=== PATIENT | male | born 1980 | race Caucasian/White ===

== ENCOUNTER 2018-11-26 19:24 | Emergency (ER) | payer SELFPAY ==
--- NOTE | 2018-11-26 19:56 | EDM.PDOC ---
ED HPI GENERAL MEDICAL PROBLEM - General Chief Complaint: General Stated Complaint: PT HAS FLU Time Seen by Provider: 11/26/18 19:46 - History of Present Illness INITIAL COMMENTS - FREE TEXT/NARRATIVE: HISTORY AND PHYSICAL: History of present illness: The patient is a 38-year-old male with no significant past medical history who presents or clearance to go back to work after having upper respiratory symptoms /viral symptoms. He says for the last week he's had a runny nose congestion cough body aches subjective fevers and chills and some diarrhea. He says he's been using [id number] meds and trying to hydrate. He does state that he is feeling much improved and wanted to go back to work but his employer said that he needed to come and get a note to clear him. He is currently hydrating and eating has no abdominal complaints and says overall is feeling much improved. The patient did not get his influenza shot this year Review of systems: As per history of present illness and below otherwise all systems reviewed and negative. Past medical history: As per history of present illness and as reviewed below otherwise noncontributory. Surgical history: As per history of present illness and as reviewed below otherwise noncontributory. Social history: No reported history of drug or alcohol abuse. Family history: As per history of present illness and as reviewed below otherwise noncontributory. Physical exam: General: Well-developed well-nourished man who is nontoxic and speaking was slight nasal quality to voice but no breathlessness HEENT: Atraumatic, normocephalic, pupils reactive, negative for conjunctival pallor or scleral icterus, mucous membranes moist, throat clear, neck supple, nontender, trachea midline. No cervical adenopathy or nuchal rigidity Lungs: Clear to auscultation, breath sounds equal bilaterally, chest nontender. No wheezing stridor or work of breathing Heart: S1S2, regular rhythm and slightly tachycardic rate on my evaluation but no overt murmurs. Abdomen: Soft, nondistended, nontender. NABS Pelvis: Deferred Genitourinary: Deferred. Rectal: Deferred. Extremities: Atraumatic, full range of motion without defects or deficits Neurovascular unremarkable. Neuro: Awake, alert, oriented. Cranial nerves II through XII unremarkable. Cerebellum unremarkable. Motor and sensory unremarkable throughout. Exam nonfocal. Diagnostics: [] Therapeutics: [] I offered the patient testing and he said that he is feeling better at this point and he would only do it if it was necessary for him to be cleared to go back to work. I did give the patient a digital thermometer so that he can check his temperatures and I advised him that if he has a fever of 100.5 or higher that he should not go to work until he is fever free for 24 hours. We talked about [id number] medications to utilize and push hydration and I did write him a work note to return as long as he does not have a fever Impression: Viral illness improving Definitive disposition and diagnosis as appropriate pending reevaluation and review of above. - Related Data Allergies Allergy/AdvReac Type Severity Reaction Status Date / Time No Known Allergies Allergy Verified 11/26/18 19:43 Home Meds: Home Meds . [No Known Home Meds] 08/01/18 [History] Past Medical History - Past Health History Medical/Surgical History: Denies Medical/Surgical History HEENT History: Reports: None Cardiovascular History: Reports: None Respiratory History: Reports: None Gastrointestinal History: Reports: None Genitourinary History: Reports: None Musculoskeletal History: Reports: None Neurological History: Reports: None Psychiatric History: Reports: None Endocrine/Metabolic History: Reports: None Hematologic History: Reports: None Immunologic History: Reports: None Oncologic (Cancer) History: Reports: None Dermatologic History: Reports: None - Infectious Disease History Infectious Disease History: Reports: Chicken Pox - Past Surgical History Head Surgeries/Procedures: Reports: None Social & Family History - Family History Family Medical History: Noncontributory - Tobacco Use Smoking Status *Q: Current Every Day Smoker Years of Tobacco use: 10 Packs/Tins Daily: 0.5 - Caffeine Use Caffeine Use: Reports: None - Recreational Drug Use Recreational Drug Use: No ED ROS GENERAL - Review of Systems Review Of Systems: ROS reveals no pertinent complaints other than HPI. ED EXAM, GENERAL - Physical Exam Exam: See Below (See dictation) Course - Vital Signs Last Recorded V/S: Last Vital Signs Temp 35.6 C 11/26/18 19:39 Pulse 111 H 11/26/18 19:39 Resp 16 11/26/18 19:39 BP 178/97 H 11/26/18 19:39 Pulse Ox 94 L 02/10/19 19:39 Departure - Departure Time of Disposition: 19:56 Disposition: Home, Self-Care 01 Condition: Good Clinical Impression: Viral illness - Discharge Information Referrals: PCP,None [Primary Care Provider] - Additional Instructions: The following information is given to patients seen in the emergency department who are being discharged to home. This information is to outline your options for follow-up care. We provide all patients seen in our emergency department with a follow-up referral. The need for follow-up, as well as the timing and circumstances, are variable depending upon the specifics of your emergency department visit. If you don't have a primary care physician on staff, we will provide you with a referral. We always advise you to contact your personal physician following an emergency department visit to inform them of the circumstance of the visit and for follow-up with them and/or the need for any referrals to a consulting specialist. The emergency department will also refer you to a specialist when appropriate. This referral assures that you have the opportunity for followup care with a specialist. All of these measure are taken in an effort to provide you with optimal care, which includes your followup. Under all circumstances we always encourage you to contact your private physician who remains a resource for coordinating your care. When calling for followup care, please make the office aware that this follow-up is from your recent emergency room visit. If for any reason you are refused follow-up, please contact the [facility] emergency department at and ask to speak to the emergency department charge nurse. [facility] Primary care- Internal Medicine and Family [address] [address] Continue to push hydration including electrolyte solutions and use over-the- counter meds for fevers such as Tylenol and ibuprofen. Use a thermometer you have been given here in the ED to check her temperatures and do not return to work until your fever free for 24 hours as we discussed. A fevers defined as a temperature greater than 100.4. Please call and schedule follow-up appointment in our clinic to establish care as you're new to the area and return to ER as needed and as discussed.
== END 2018-11-26 20:05 | disposition home or self-care (01) ==
LOC: MW.ED 19:24
DX: B34.9 Viral infection, unspecified (principal); F17.210 Nicotine dependence, cigarettes, uncomplicated
CPT/HCPCS: 99282; 99283

== ENCOUNTER 2019-02-28 06:55 | Emergency (ER) | payer SELFPAY ==
--- NOTE | 2019-02-28 07:00 | EDM.PDOC ---
ED HPI GENERAL MEDICAL PROBLEM - General Stated Complaint: PT WOULD LIKE TO BE SEEN, SPOKE TO NURSE Time Seen by Provider: 02/28/19 06:59 Source of Information: Reports: Patient History Limitations: Reports: No Limitations - History of Present Illness INITIAL COMMENTS - FREE TEXT/NARRATIVE: History of present illness: []Patient complains of a "shaky stomach" for 2 days. He has been nauseated with vomiting and diarrhea. Patient's had proximal 7 episodes of "gagging" per day and greater than 10 episodes of nonbloody diarrhea a day. Review of systems: As per history of present illness and below otherwise all systems reviewed and negative. Past medical history: As per history of present illness and as reviewed below otherwise noncontributory. Surgical history: As per history of present illness and as reviewed below otherwise noncontributory. Social history: No reported history of drug or alcohol abuse. Family history: As per history of present illness and as reviewed below otherwise noncontributory. Physical exam: General: Well developed, well nourished in NAD, on arrival was initially diaphoretic HEENT: Atraumatic, normocephalic, pupils reactive, negative for conjunctival pallor or scleral icterus, mucous membranes moist, throat clear, neck supple, nontender, trachea midline. Lungs: Clear to auscultation, breath sounds equal bilaterally, chest nontender. Heart: S1S2, regular, negative for clicks, rubs, or JVD. Abdomen: NABS, Soft, nondistended, nontender. Negative for masses or hepatosplenomegaly. Negative for costovertebral tenderness. Pelvis: Stable nontender. Genitourinary: Deferred. Rectal: Deferred. Extremities: Atraumatic, negative for cords or calf pain. Neurovascular unremarkable. Neuro: Awake, alert, oriented. Cranial nerves II through XII unremarkable. Cerebellum unremarkable. Motor and sensory unremarkable throughout. Exam nonfocal. Skin:warm and dry Diagnostics: CBC, chemistry, H. pylori, UA, chest x-ray Therapeutics: Zofran, IV hydration ED Course: Stable Impression: Vomiting diarrhea Prescriptions: Zofran Plan: Take meds as directed, follow up with your primary care physician, return to ER if symptoms worsen or change. Definitive disposition and diagnosis as appropriate pending reevaluation and review of above. Generalized Pain Score (Numeric/FACES): 5 - Related Data Allergies Allergy/AdvReac Type Severity Reaction Status Date / Time No Known Allergies Allergy Verified 02/28/19 07:07 Home Meds: Home Meds Ondansetron HCl [Zofran] 4 mg PO Q4HR #12 tablet 02/28/19 [Rx] Past Medical History - Past Health History Medical/Surgical History: Denies Medical/Surgical History HEENT History: Reports: None Cardiovascular History: Reports: None Respiratory History: Reports: None Gastrointestinal History: Reports: None Genitourinary History: Reports: None Musculoskeletal History: Reports: None Neurological History: Reports: None Psychiatric History: Reports: None Endocrine/Metabolic History: Reports: None Hematologic History: Reports: None Immunologic History: Reports: None Oncologic (Cancer) History: Reports: None Dermatologic History: Reports: None - Infectious Disease History Infectious Disease History: Reports: Chicken Pox - Past Surgical History Head Surgeries/Procedures: Reports: None Social & Family History - Family History Family Medical History: Noncontributory - Caffeine Use Caffeine Use: Reports: None ED ROS GENERAL - Review of Systems Review Of Systems: ROS reveals no pertinent complaints other than HPI. (vbvb) ED EXAM, GENERAL - Physical Exam Exam: See Below (See history of present illness) Course - Vital Signs Last Recorded V/S: Last Vital Signs Temp 98.1 F 02/28/19 07:07 Pulse 88 02/28/19 08:34 Resp 13 02/28/19 08:34 BP 146/90 H 02/28/19 08:34 Pulse Ox 95 02/28/19 08:34 - Orders/Labs/Meds Orders: Active Orders 24 hr Category Date Time Status EKG Documentation Completion [RC] STAT Care 02/28/19 07:13 Active Sodium Chloride 0.9% [Saline Flush] Med 02/28/19 07:06 Active 10 ml FLUSH ASDIRECTED PRN Sodium Chloride 0.9% [Saline Flush] Med 02/28/19 07:06 Active 2.5 ml FLUSH ASDIRECTED PRN Saline Lock Insert [OM.PC] Stat Oth 02/28/19 07:04 Ordered Medication Orders Sodium Chloride (Saline Flush) 10 ml FLUSH ASDIRECTED PRN PRN Reason: Keep Vein Open Last Admin: 02/28/19 07:27 Dose: 10 ml Sodium Chloride (Saline Flush) 2.5 ml FLUSH ASDIRECTED PRN PRN Reason: Keep Vein Open Last Admin: 02/28/19 07:27 Dose: 2.5 ml Labs: Laboratory Tests 02/28/19 02/28/19 02/28/19 Range/Units 07:25 07:25 07:25 WBC 6.50 (4.0-11.0) K/uL RBC 5.74 (4.50-5.90) M/uL Hgb 18.4 H (13.0-17.0) g/dL Hct 51.4 H (38.0-50.0) % MCV 89.5 (80.0-98.0) fL MCH 32.1 H (27.0-32.0) pg MCHC 35.8 (31.0-37.0) g/dL RDW Std Deviation 43.3 (28.0-62.0) fl RDW Coeff of Carole 13 (11.0-15.0) % Plt Count 161 (150-400) K/uL MPV 9.90 (7.40-12.00) fL Neut % (Auto) 64.8 (48.0-80.0) % Lymph % (Auto) 18.8 (16.0-40.0) % [place] % (Auto) 14.5 (0.0-15.0) % Eos % (Auto) 1.7 (0.0-7.0) % Baso % (Auto) 0.2 (0.0-1.5) % Neut # (Auto) 4.2 (1.4-5.7) K/uL Lymph # (Auto) 1.2 (0.6-2.4) K/uL [place] # (Auto) 0.9 H (0.0-0.8) K/uL Eos # (Auto) 0.1 (0.0-0.7) K/uL Baso # (Auto) 0.0 (0.0-0.1) K/uL Nucleated RBC % 0.0 /100WBC Nucleated RBCs # 0 K/uL Sodium 135 L (136-148) mmol/L Potassium 3.7 (3.5-5.1) mmol/L Chloride 97 L (98-107) mmol/L Carbon Dioxide 23.1 (21.0-32.0) mmol/L BUN 18 (7.0-18.0) mg/dL Creatinine 1.1 (0.8-1.3) mg/dL Est Cr Clr Drug Dosing 96.03 mL/min Estimated GFR (MDRD) > 60.0 ml/min Glucose 139 H (74-106) mg/dL Calcium 9.5 (8.5-10.1) mg/dL Total Bilirubin 1.0 (0.2-1.0) mg/dL AST 25 (15-37) IU/L ALT 25 (14-63) IU/L Alkaline Phosphatase 53 (46-116) U/L Troponin I (0.000-0.056) ng/mL Total Protein 8.3 H (6.4-8.2) g/dL Albumin 4.5 (3.4-5.0) g/dL Globulin 3.8 (2.6-4.0) g/dL Albumin/Globulin Ratio 1.2 (0.9-1.6) Lipase 112 (73-393) U/L Urine Color Urine Appearance Urine pH (5.0-8.0) Ur Specific [place] (1.001-1.035) Urine Protein (NEGATIVE) mg/dL Urine Glucose (UA) (NEGATIVE) mg/dL Urine Ketones (NEGATIVE) mg/dL Urine Occult Blood (NEGATIVE) Urine Nitrite (NEGATIVE) Urine Bilirubin (NEGATIVE) Urine Ictotest Urine Urobilinogen (<2.0) EU/dL Ur Leukocyte Esterase (NEGATIVE) Urine RBC (0-2/HPF) Urine WBC (0-5/HPF) Ur Epithelial Cells (NONE-FEW) Amorphous Sediment (NEGATIVE) Urine Bacteria (NEGATIVE) Fine Granular Casts (NEGATIVE) Coarse Granular Casts (NEGATIVE) Urine Mucus (NONE-MOD) H. pylori IgG Antibody NEGATIVE (NEG) 02/28/19 02/28/19 Range/Units 07:25 07:32 WBC (4.0-11.0) K/uL RBC (4.50-5.90) M/uL Hgb (13.0-17.0) g/dL Hct (38.0-50.0) % MCV (80.0-98.0) fL MCH (27.0-32.0) pg MCHC (31.0-37.0) g/dL RDW Std Deviation (28.0-62.0) fl RDW Coeff of Carole (11.0-15.0) % Plt Count (150-400) K/uL MPV (7.40-12.00) fL Neut % (Auto) (48.0-80.0) % Lymph % (Auto) (16.0-40.0) % [place] % (Auto) (0.0-15.0) % Eos % (Auto) (0.0-7.0) % Baso % (Auto) (0.0-1.5) % Neut # (Auto) (1.4-5.7) K/uL Lymph # (Auto) (0.6-2.4) K/uL [place] # (Auto) (0.0-0.8) K/uL Eos # (Auto) (0.0-0.7) K/uL Baso # (Auto) (0.0-0.1) K/uL Nucleated RBC % /100WBC Nucleated RBCs # K/uL Sodium (136-148) mmol/L Potassium (3.5-5.1) mmol/L Chloride (98-107) mmol/L Carbon Dioxide (21.0-32.0) mmol/L BUN (7.0-18.0) mg/dL Creatinine (0.8-1.3) mg/dL Est Cr Clr Drug Dosing mL/min Estimated GFR (MDRD) ml/min Glucose (74-106) mg/dL Calcium (8.5-10.1) mg/dL Total Bilirubin (0.2-1.0) mg/dL AST (15-37) IU/L ALT (14-63) IU/L Alkaline Phosphatase (46-116) U/L Troponin I < 0.050 (0.000-0.056) ng/mL Total Protein (6.4-8.2) g/dL Albumin (3.4-5.0) g/dL Globulin (2.6-4.0) g/dL Albumin/Globulin Ratio (0.9-1.6) Lipase (73-393) U/L Urine Color YELLOW Urine Appearance SLT CLOUDY Urine pH 5.5 (5.0-8.0) Ur Specific [place] >= 1.030 (1.001-1.035) Urine Protein TRACE H (NEGATIVE) mg/dL Urine Glucose (UA) NEGATIVE (NEGATIVE) mg/dL Urine Ketones 15 H (NEGATIVE) mg/dL Urine Occult Blood TRACE-LYSED H (NEGATIVE) Urine Nitrite NEGATIVE (NEGATIVE) Urine Bilirubin MODERATE H (NEGATIVE) Urine Ictotest NEGATIVE Urine Urobilinogen 0.2 (<2.0) EU/dL Ur Leukocyte Esterase NEGATIVE (NEGATIVE) Urine RBC 0-2 (0-2/HPF) Urine WBC 0-2 (0-5/HPF) Ur Epithelial Cells RARE (NONE-FEW) Amorphous Sediment LIGHT (NEGATIVE) Urine Bacteria FEW (NEGATIVE) Fine Granular Casts 0-2 (NEGATIVE) Coarse Granular Casts 0-3 (NEGATIVE) Urine Mucus LIGHT (NONE-MOD) H. pylori IgG Antibody (NEG) Meds: Medications Generic Name Dose Route Start Last Admin Trade Name Freq PRN Reason Stop Dose Admin Sodium Chloride 10 ml 02/28/19 07:06 02/28/19 07:27 Saline Flush FLUSH 10 ml ASDIRECTED PRN Administration Keep Vein Open Sodium Chloride 2.5 ml 02/28/19 07:06 02/28/19 07:27 Saline Flush FLUSH 2.5 ml ASDIRECTED PRN Administration Keep Vein Open Discontinued Medications Generic Name Dose Route Start Last Admin Trade Name Freq PRN Reason Stop Dose Admin Sodium Chloride 1,000 mls @ 999 mls/hr 02/28/19 07:06 02/28/19 07:26 Normal Saline IV 02/28/19 08:06 999 mls/hr .Bolus ONE Administration Ondansetron HCl 4 mg 02/28/19 07:07 02/28/19 07:26 Zofran IVPUSH 02/28/19 07:08 4 mg ONETIME ONE Administration Departure - Departure Time of Disposition: 09:45 Disposition: Home, Self-Care 01 Condition: Good Clinical Impression: Vomiting and diarrhea, Hypertension - Discharge Information *PRESCRIPTION DRUG MONITORING PROGRAM REVIEWED*: No *COPY OF PRESCRIPTION DRUG MONITORING REPORT IN PATIENT CARI: No Prescriptions: Ondansetron HCl [Zofran] 4 mg PO Q4HR #12 tablet Referrals: PCP,None [Primary Care Provider] - Additional Instructions: The following information is given to patients seen in the emergency department who are being discharged to home. This information is to outline your options for follow-up care. We provide all patients seen in our emergency department with a follow-up referral. The need for follow-up, as well as the timing and circumstances, are variable depending upon the specifics of your emergency department visit. If you don't have a primary care physician on staff, we will provide you with a referral. We always advise you to contact your personal physician following an emergency department visit to inform them of the circumstance of the visit and for follow-up with them and/or the need for any referrals to a consulting specialist. The emergency department will also refer you to a specialist when appropriate. This referral assures that you have the opportunity for follow-up care with a specialist. All of these measure are taken in an effort to provide you with optimal care, which includes your follow-up. Under all circumstances we always encourage you to contact your private physician who remains a resource for coordinating your care. When calling for follow-up care, please make the office aware that this follow-up is from your recent emergency room visit. If for any reason you are refused follow-up, please contact the [facility] Emergency Department at and asked to speak to the emergency department charge nurse. Take meds as directed, follow up with your primary care physician, return to ER if symptoms worsen or change. [facility] Primary [facility] [address] [place] [address] - My Orders Last 24 Hours: My Active Orders 02/28/19 07:04 Saline Lock Insert [OM.PC] Stat 02/28/19 07:06 Sodium Chloride 0.9% [Saline Flush] 10 ml FLUSH ASDIRECTED PRN Sodium Chloride 0.9% [Saline Flush] 2.5 ml FLUSH ASDIRECTED PRN 02/28/19 07:13 EKG Documentation Completion [RC] STAT - Assessment/Plan Last 24 Hours: My Active Orders 02/28/19 07:04 Saline Lock Insert [OM.PC] Stat 02/28/19 07:06 Sodium Chloride 0.9% [Saline Flush] 10 ml FLUSH ASDIRECTED PRN Sodium Chloride 0.9% [Saline Flush] 2.5 ml FLUSH ASDIRECTED PRN 02/28/19 07:13 EKG Documentation Completion [RC] STAT
[2019-02-28] MEDS ORDERED: Sodium Chloride 0.9% 1,000 ML IV ONE (07:06)
[2019-02-28] MEDS ORDERED: Sodium Chloride 0.9% 2.5 ML Syringe FLUSH PRN (07:06)
[2019-02-28] MEDS ORDERED: Sodium Chloride 0.9% 10 ML Syringe FLUSH PRN (07:06)
[2019-02-28] MEDS ORDERED: Ondansetron 4 MG/2 ML SDV IVPUSH ONE (07:07)
[2019-02-28 08:01] LABS: CHLORIDE,CL 97 mmol/L (98-107); SODIUM,NA 135 mmol/L (136-148)
--- NOTE | 2019-02-28 08:14 | CR ---
INDICATION: Generalized illness for 3 days. TECHNIQUE: AP portable upright chest. FINDINGS: Clear lungs. Normal heart size and pulmonary vascularity. Normal included skeletal thorax. IMPRESSION: Normal portable chest. Dictated by Gavin Dinh MD @ Feb 28 2019 8:11AM Signed by Dr. Gavin Dinh @ Feb 28 2019 8:11AM
== END 2019-02-28 09:53 | disposition home or self-care (01) ==
LOC: MW.ED 06:55
DX: R11.2 Nausea with vomiting, unspecified (principal); R19.7 Diarrhea, unspecified; I10 Essential (primary) hypertension
CPT/HCPCS: 36415; 71045; 80053; 81001; 83690; 84484; 85025; 86677; 93005; 96361; 96374; 99284; J2405; J7040